=== PATIENT | female | born 1970 | race Caucasian/White ===

== ENCOUNTER 2016-07-05 08:18 | Emergency (ER) | payer MEDICAID ==
[~2016-07-05] VITALS: Ht 167.6 cm; Wt 79.4 kg
--- NOTE | 2016-07-05 08:33 | NUR ---
PATIENT TO ER BED 4.
--- NOTE | 2016-07-05 08:35 | NUR ---
Patient being evaluated by physician at bedside.
[2016-07-05 08:36] VITALS: BP 145/81
[2016-07-05] MEDS ORDERED: KETOROLAC 60 MG/2 ML VIAL IM ONE (08:40)
[2016-07-05] MEDS ORDERED: ALUMINUM HYD/MAG/SIMETHICONE 30 ML, BELLADONNA/PHENOBARBITAL 10 ML, LIDOCAINE VISCOUS 2... PO ONE (08:40)
--- NOTE | 2016-07-05 08:52 | NUR ---
46/F TO ED WITH C/O ABD PAIN RADIATING TO RIGHT SIDE X3 DAYS. PAIN 6/10. DENIES N/V/D. BOWEL SOUNDS PRESENT X4Q. LUNGS CLEAR BILAT. HR EVEN AND REGULAR. AAOX4. VSS. NO SIGNS OF DISTRESS.
[2016-07-05 09:31] VITALS: BP 143/85
--- NOTE | 2016-07-05 09:31 | NUR ---
Patient discharged with v/s stable. Written and verbal after care instructions given and explained. Patient alert, oriented and verbalized understanding of instructions. Ambulatory with steady gait. All questions addressed prior to discharge. ID band removed. Patient advised to follow up with PMD. Rx of BENTYL, PEPCID, MYLANTA given. Patient educated on indication of medication including possible reaction and side effects. Opportunity to ask questions provided and answered.
== END 2016-07-05 09:31 | disposition home or self-care (01) ==
LOC: MED 08:18
DX: R10.11 Right upper quadrant pain (principal); I10 Essential (primary) hypertension
CPT/HCPCS: 36415; 80053; 81002; 81025; 83690; 84703; 85025; 96372; 99284; J1885